=== PATIENT | male | born 1980 | race African-American/Black ===

== ENCOUNTER 2017-08-10 12:57 | Emergency (ER) | payer OTHER ==
[~2017-08-10] VITALS: Ht 180.3 cm; Wt 105.0 kg
[~2017-08-10 12:57] MED LIST: AMOX500T2 PO; LORTA5 PO
[2017-08-10 13:17] VITALS: BP 138/68; PULSE 73; RESP 16; TEMP 98.6; O2SAT 99
[2017-08-10] MEDS ORDERED: IBUP-232 PO (19:55)
== END 2017-08-10 16:34 | disposition left against medical advice (07) ==
LOC: NETRI 12:57
DX: M79.89 Other specified soft tissue disorders (principal)
CPT/HCPCS: 99281

== ENCOUNTER 2017-08-10 18:36 | Emergency (ER) | payer OTHER ==
[~2017-08-10] VITALS: Ht 182.9 cm; Wt 105.0 kg
[2017-08-10 18:54] VITALS: BP 123/73; PULSE 67; RESP 16; TEMP 98.7; O2SAT 98
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
[2017-08-10] MEDS ORDERED: IBUP-232 PO (19:55)
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
[2017-08-10] MEDS ORDERED: IBUPROFEN 600 MG TAB PO ONE (20:00)
== END 2017-08-10 20:01 | disposition home or self-care (01) ==
LOC: PHEFT 18:36
DX: S62.306A Unspecified fracture of fifth metacarpal bone, right hand, initial encounter for closed fracture (principal); Y04.2XXA Assault by strike against or bumped into by another person, initial encounter; Z72.0 Tobacco use
CPT/HCPCS: 29125; 73130